=== PATIENT | female | born 1970 | race Caucasian/White ===

== ENCOUNTER 2017-01-31 15:26 | Observation (INO) | payer OTHER ==
[~2017-01-31] VITALS: Ht 152.4 cm; Wt 67.3 kg
[~2017-01-31 15:26] MED LIST: ADVAIR 250/501 DISK IH; ADVAIR 250/501 DISK PO; ADVIL,NUPRIN,M200 MG PO; ALPRAZOLAM1 MG PO; ARNUITY ELLIP100 MCG IH; ATORVASTATIN CA40 MG PO; AVENTYL,PAMELOR25 MG PO; BENZONATATE100 MG PO; BRINTELLIX5 MG PO; BUSPAR10 MG PO; BUSPAR5 MG PO; CARDIZEM CD,CA180 MG PO; CIPRO500 MG PO; CIPROFLOXACIN500 M1 PO; CLONIDINE HCL0.2 MG PO; CYMBALTA30 MG PO; CYMBALTA60 MG PO; DAILY VALUE1 EACH PO; DULOXETINE HCL20 MG PO; GABAPENTIN300 MG PO; HYDROCODON-ACE1 EAC7 PO; IMODIUM MS REL1 EACH PO; LEVOFLOXACIN750 MG PO; LOPERAMIDE2 M1 PO; MOTRIN IB200 MG PO; NEURONTIN300 MG PO; NICODERM CQ1 EAC1 TD; OMEPRAZOLE40 M1 PO; PREDNISONE20 MG PO; PRILOSEC; PRILOSEC20 MG PO; PRILOSEC40 MG PO; REGLAN5 MG PO; SEROQUEL100 MG PO; VALIUM2 MG PO; VENTOLIN HFA18 GM IH; XANAX1 MG PO; ZOFRAN8 MG PO; ZOLPIDEM TARTRAT5 MG PO
[2017-01-31 16:48] LABS: BASOPHIL COUNT 0.1 K/uL (0-0.1); EOSINOPHIL (%) 0.1 % (0-5); IMMATURE GRANULOCYTE (%) 0.4 % (0.0-0.7); IMMATURE GRANULOCYTE COUNT 0.1 K/uL; LYMPHOCYTE COUNT 1.4 K/uL (1.0-2.8); MCH 33.1 PG (29.0-34.0); MCHC 34.3 G/DL (30.0-36.0); MCV 96.6 FL (83-99); MEAN PLAT.VOLUME 10.7 uM^3 (9.5-12.4); MONOCYTE (%) 7.8 % (3-12); MONOCYTE COUNT 1.3 K/uL (0-0.8); NEUTROPHIL (%) 83.2 % (45-76); PLATELET COUNT 273 K/uL (156-360); RBC DIS.WIDTH-CV 13.2 % (11.8-14.6); RBC DIS.WIDTH-SD 46.4 % (39-53); RED BLOOD COUNT 5.07 M/uL (3.80-5.20); WHITE BLOOD COUNT 16.9 K/uL (4.1-10.2)
[2017-01-31 17:00] LABS: ADD MIUA? YES; BILIRUBIN NEGATIVE; BLOOD NEGATIVE; COLOR AMBER ((YELLOW)); GLUCOSE (STRIP) NEGATIVE; KETONES 20; LEUKOCYTES TRACE; NITRITE NEGATIVE; PROTEIN (STRIP) 100; SPECIFIC GRAVITY 1.024 (1.000-1.030); UROBILINOGEN 0.2 MG/DL (0.2-1.0)
[2017-01-31 17:06] LABS: CHLORIDE 107 mEq/L (99-109); POTASSIUM 4.7 mEq/L (3.7-5.4); SODIUM 144 mEq/L (136-147)
[2017-01-31 17:08] LABS: GLUCOSE 120 mg/dL (70-99)
[2017-01-31 17:09] LABS: TROP-I INTERPRETATION NEGATIVE; TROPONIN-I < 0.01 ng/mL (0.0-0.30)
[2017-01-31 17:10] LABS: ANION GAP 18 MEQ/L (2-14); TOTAL BILIRUBIN 0.8 mg/dL (0.0-1.0)
[2017-01-31 17:12] LABS: ALKALINE PHOSPHATASE 105 IU/L (3-129); GFR ESTIMATE (CALCULATED) > 59 mL/min/
[2017-01-31 17:13] LABS: UREA NITROGEN (BUN) 14 mg/dL (9-23)
[2017-01-31 17:16] LABS: LIPASE 66 U/L (1.0-51.0)
[2017-01-31 17:24] LABS: BACTERIA RARE /HPF; EPITHELIAL CELLS 1+ /HPF; MUCUS 2+ /LPF; RED BLOOD CELLS 0-5 /HPF (0-5); UCUL ADDED? NO
[2017-01-31] MEDS ORDERED: BUSPAR5 MG PO (19:46)
[2017-01-31 20:24] LABS: INFLUENZA A VIRAL ANTIGEN NEGATIVE; INFLUENZA B VIRAL ANTIGEN NEGATIVE
[2017-01-31 23:31] VITALS: BP 148/98
[2017-02-01 04:30] VITALS: BP 150/89
[2017-02-01 07:18] VITALS: BP 142/75
[2017-02-01 07:35] LABS: ANION GAP 11 MEQ/L (2-14); CHLORIDE 111 MEQ/L (99-109); GFR ESTIMATE (CALCULATED) > 59 mL/min/; GLUCOSE 100 mg/dL (70-99); SAMPLE HEMOLYSIS CHECK 0; SAMPLE ICTERIC CHECK 0; SAMPLE LIPEMIA CHECK 0; SODIUM 146 MEQ/L (136-147); UREA NITROGEN (BUN) 11 mg/dL (9-23)
[2017-02-01 07:36] LABS: POTASSIUM 3.2 MEQ/L (3.7-5.4)
[2017-02-01 07:54] LABS: HEMATOCRIT 37.8 % (36.0-46.0); MCH 32.9 PG (29.0-34.0); MCHC 33.3 G/DL (30.0-36.0); MCV 98.7 FL (83-99); RBC DIS.WIDTH-CV 13.4 % (11.8-14.6); RBC DIS.WIDTH-SD 48.4 % (39-53)
[2017-02-01 07:58] LABS: RED BLOOD COUNT 3.83 M/uL (3.80-5.20); WHITE BLOOD COUNT 6.5 K/uL (4.1-10.2)
[2017-02-01 08:03] LABS: MEAN PLAT.VOLUME 10.7 uM^3 (9.5-12.4); PLAT.SUFFICIENCY ADEQUATE; PLATELET COUNT 151 K/uL (156-360)
[2017-02-01 10:01] LABS: LIPASE 93 U/L (1.0-51.0)
[2017-02-01 12:53] VITALS: BP 136/101
== END 2017-02-01 15:19 | disposition home or self-care (01) ==
LOC: EME → EDBD 15:26 → EDOF 22:26 → 5WEST 22:26 → EDOF 22:26 → 5WEST 23:10
PROVIDERS: Emergency Medicine; Family Medicine
DX: R11.2 Nausea with vomiting, unspecified (principal); R51 Headache; E86.0 Dehydration; E87.6 Hypokalemia; D72.829 Elevated white blood cell count, unspecified; I16.0 Hypertensive urgency; I10 Essential (primary) hypertension; R00.0 Tachycardia, unspecified; F41.9 Anxiety disorder, unspecified; K21.9 Gastro-esophageal reflux disease without esophagitis; Z87.11 Personal history of peptic ulcer disease; J44.9 Chronic obstructive pulmonary disease, unspecified; F32.9 Major depressive disorder, single episode, unspecified; F17.200 Nicotine dependence, unspecified, uncomplicated
CPT/HCPCS: 70450; 71010; 74176; 80048; 80053; 81003; 83605; 83690; 84484; 85025; 85027; 86850; 86900; 86901; 87040; 87502; 93005; 99202; 99281; 99285; C9113; G0378; J0360; J0780; J2060; J2270; J2405; J3010; J3360; J7030; Q0169

== ENCOUNTER 2017-04-21 09:17 | Inpatient (IN) | payer OTHER ==
[~2017-04-21] VITALS: Ht 152.4 cm; Wt 66.8 kg
[2017-04-21 10:20] LABS: EOSINOPHIL (%) 0.7 % (0-5); EOSINOPHIL COUNT 0.1 K/uL (0-0.3); HEMATOCRIT 42.7 % (36.0-46.0); IMMATURE GRANULOCYTE (%) 0.7 % (0.0-0.7); IMMATURE GRANULOCYTE COUNT 0.1 K/uL; INSTRUMENT ABS NEUTROPHIL CT 12.4 K/uL; LYMPHOCYTE COUNT 0.9 K/uL (1.0-2.8); MCH 33.2 PG (29.0-34.0); MCHC 33.7 G/DL (30.0-36.0); MCV 98.4 FL (83-99); MEAN PLAT.VOLUME 11.7 uM^3 (9.5-12.4); MONOCYTE (%) 3.8 % (3-12); MONOCYTE COUNT 0.5 K/uL (0-0.8); NEUTROPHIL (%) 88.4 % (45-76); NEUTROPHIL COUNT 12.4 K/uL (1.8-6.4); PLATELET COUNT 196 K/uL (156-360); RBC DIS.WIDTH-CV 12.3 % (11.8-14.6); RBC DIS.WIDTH-SD 45.2 % (39-53); RED BLOOD COUNT 4.34 M/uL (3.80-5.20); WHITE BLOOD COUNT 14.1 K/uL (4.1-10.2)
[2017-04-21 10:28] LABS: ADD MIUA? YES; BILIRUBIN SMALL; BLOOD NEGATIVE; COLOR AMBER ((YELLOW)); GLUCOSE (STRIP) NEGATIVE; KETONES NEGATIVE; LEUKOCYTES SMALL; NITRITE NEGATIVE; PROTEIN (STRIP) 100; SPECIFIC GRAVITY 1.025 (1.000-1.030)
[2017-04-21 10:36] LABS: CHLORIDE 100 mEq/L (99-109); POTASSIUM 2.8 mEq/L (3.7-5.4); SODIUM 136 mEq/L (136-147)
[2017-04-21 10:38] LABS: GLUCOSE 133 mg/dL (70-99)
[2017-04-21 10:38] LABS: AMPHETAMINE NEGATIVE (500 ng/mL); BARBITURATES NEGATIVE (200 ng/mL); BENZODIAZEPINES PRESUMPTIVE POSITIVE (150 ng/mL); COCAINE PRESUMPTIVE POSITIVE (150 ng/mL); INTERNAL CONTROLS VALID? YES; METHADONE NEGATIVE (200 ng/mL); METHAMPHETAMINE NEGATIVE (500 ng/mL); OPIATES (MORPHINE) NEGATIVE (100 ng/mL); OXYCODONE PRESUMPTIVE POSITIVE (100 ng/mL); PHENCYCLIDINE NEGATIVE (25 ng/mL); PROPOXYPHENE NEGATIVE (300 ng/mL); THC CANNABINOIDS PRESUMPTIVE POSITIVE (50 ng/mL); TRICYCLIC ANTIDEPRESSANTS PRESUMPTIVE POSITIVE (300 ng/mL)
[2017-04-21 10:39] LABS: ADD MEDTOX COMMENT Y
[2017-04-21 10:39] LABS: ANION GAP 13 MEQ/L (2-14)
[2017-04-21 10:40] LABS: TOTAL BILIRUBIN 1.2 mg/dL (0.0-1.0)
[2017-04-21 10:41] LABS: ALKALINE PHOSPHATASE 95 IU/L (3-129)
[2017-04-21 10:42] LABS: GFR ESTIMATE (CALCULATED) > 59 mL/min/
[2017-04-21 10:43] LABS: UREA NITROGEN (BUN) 10 mg/dL (9-23)
[2017-04-21 10:51] LABS: QUANTITATIVE HCG < 4.0 MIU/ML
[2017-04-21 10:52] LABS: BACTERIA 2+ /HPF; EPITHELIAL CELLS 2+ /HPF; MUCUS 3+ /LPF; RED BLOOD CELLS NONE SEEN /HPF (0-5); UCUL ADDED? YES
[2017-04-21 11:12] LABS: BENZODIAZEPINES, URINE SCREEN POSITIVE (200 ng/mL)
[2017-04-21] MEDS ORDERED: CYMBALTA30 MG PO (11:15)
[2017-04-21] MEDS ORDERED: GABAPENTIN300 MG PO (11:16)
[2017-04-21 14:45] LABS: TROP-I INTERPRETATION NEGATIVE; TROPONIN-I < 0.01 ng/mL (0.0-0.30)
[2017-04-21 15:38] VITALS: BP 111/79
[2017-04-21 16:28] LABS: C DIFF TOXIN NEGATIVE (NEGATIVE); PROBE CHECK PASS; SPECIMEN PROCESSING CONTROL PASS
[2017-04-21 19:29] VITALS: BP 106/67
[2017-04-21 20:00] LABS: TROP-I INTERPRETATION NEGATIVE; TROPONIN-I < 0.01 ng/mL (0.0-0.30)
[2017-04-21 23:35] VITALS: BP 97/56
[2017-04-22 01:52] LABS: TROP-I INTERPRETATION NEGATIVE; TROPONIN-I < 0.01 ng/mL (0.0-0.30)
[2017-04-22 03:36] VITALS: BP 117/79
[2017-04-22 06:19] LABS: HEMATOCRIT 40.7 % (36.0-46.0); MCH 33.7 PG (29.0-34.0); MCHC 32.4 G/DL (30.0-36.0); MEAN PLAT.VOLUME 11.9 uM^3 (9.5-12.4); PLATELET COUNT 190 K/uL (156-360); RBC DIS.WIDTH-CV 12.6 % (11.8-14.6); RBC DIS.WIDTH-SD 48.2 % (39-53); RED BLOOD COUNT 3.92 M/uL (3.80-5.20); WHITE BLOOD COUNT 7.7 K/uL (4.1-10.2)
[2017-04-22 06:23] LABS: MCV 103.8 FL (83-99)
[2017-04-22 06:42] LABS: ANION GAP 10 MEQ/L (2-14); CHLORIDE 109 MEQ/L (99-109); GFR ESTIMATE (CALCULATED) > 59 mL/min/; GLUCOSE 192 mg/dL (70-99); POTASSIUM 4.7 MEQ/L (3.7-5.4); SAMPLE HEMOLYSIS CHECK 0; SAMPLE ICTERIC CHECK 0; SAMPLE LIPEMIA CHECK 0; SODIUM 141 MEQ/L (136-147); UREA NITROGEN (BUN) 6 mg/dL (9-23)
[2017-04-22 07:47] VITALS: BP 100/68
[2017-04-22 15:05] VITALS: BP 153/81
[2017-04-22 19:58] VITALS: BP 150/85
[2017-04-22 23:47] VITALS: BP 121/79
[2017-04-23 03:43] VITALS: BP 126/82
[2017-04-23 08:35] VITALS: BP 131/79
[2017-04-23 11:42] LABS: INTERNAL CONTROL VALID? YES
[2017-04-23 11:43] LABS: INTERNAL CONTROL VALID? YES
[2017-04-23 12:47] VITALS: BP 144/65
[2017-04-23 15:52] VITALS: BP 162/93
[2017-04-23 20:00] VITALS: BP 160/90
[2017-04-24] VITALS (8 sets, daily range): BP systolic 135–194; BP diastolic 72–97
[2017-04-24 09:31] LABS: HEMATOCRIT 37.7 % (36.0-46.0); MCH 33.3 PG (29.0-34.0); MCHC 32.6 G/DL (30.0-36.0); MCV 102.2 FL (83-99); MEAN PLAT.VOLUME 11.4 uM^3 (9.5-12.4); PLATELET COUNT 226 K/uL (156-360); RBC DIS.WIDTH-CV 12.4 % (11.8-14.6); RBC DIS.WIDTH-SD 46.5 % (39-53); RED BLOOD COUNT 3.69 M/uL (3.80-5.20); WHITE BLOOD COUNT 7.1 K/uL (4.1-10.2)
[2017-04-24 09:53] LABS: ANION GAP 9 MEQ/L (2-14); CHLORIDE 107 MEQ/L (99-109); GFR ESTIMATE (CALCULATED) > 59 mL/min/; POTASSIUM 3.8 MEQ/L (3.7-5.4); SAMPLE HEMOLYSIS CHECK 0; SAMPLE ICTERIC CHECK 0; SAMPLE LIPEMIA CHECK 0; SODIUM 143 MEQ/L (136-147); UREA NITROGEN (BUN) 7 mg/dL (9-23)
[2017-04-24 09:54] LABS: GLUCOSE 114 mg/dL (70-99)
[2017-04-25 03:43] VITALS: BP 141/78
[2017-04-25 08:42] VITALS: BP 147/90
[2017-04-25] MEDS ORDERED: SPIRIVA RESPIMAT4 GM IH (09:38)
[2017-04-25] MEDS ORDERED: NICOTINE PATCH1 EAC2 TD (09:38)
[2017-04-25] MEDS ORDERED: ADVAIR HFA120 INHAL1 IH (09:38)
[2017-04-25] MEDS ORDERED: CEFTIN500 MG PO (09:39)
[2017-04-25] MEDS ORDERED: PREDNISONE10 MG PO (09:40)
== END 2017-04-25 11:22 | disposition home or self-care (01) | DRG 190 ==
LOC: EME 09:17 → EDOF 13:30 → 5SOUTH 13:30
PROVIDERS: Emergency Medicine; Internal Medicine; Internal Medicine Pulmonary Disease; Nurse Practitioner Adult Health
DX: J44.0 Chronic obstructive pulmonary disease with (acute) lower respiratory infection (principal); J12.9 Viral pneumonia, unspecified; J44.1 Chronic obstructive pulmonary disease with (acute) exacerbation; R09.02 Hypoxemia; I10 Essential (primary) hypertension; D86.9 Sarcoidosis, unspecified; T38.0X5A Adverse effect of glucocorticoids and synthetic analogues, initial encounter; F41.9 Anxiety disorder, unspecified; K21.9 Gastro-esophageal reflux disease without esophagitis; F12.10 Cannabis abuse, uncomplicated; F14.10 Cocaine abuse, uncomplicated; F17.210 Nicotine dependence, cigarettes, uncomplicated; F32.9 Major depressive disorder, single episode, unspecified; E87.6 Hypokalemia; G43.909 Migraine, unspecified, not intractable, without status migrainosus; E78.5 Hyperlipidemia, unspecified; Z87.01 Personal history of pneumonia (recurrent); Z87.11 Personal history of peptic ulcer disease; Z90.710 Acquired absence of both cervix and uterus; Z82.3 Family history of stroke; Z82.49 Family history of ischemic heart disease and other diseases of the circulatory system
CPT/HCPCS: 71020; 71275; 80048; 80053; 81003; 83605; 83880; 84484; 84702; 84999; 85025; 85027; 87040; 87070; 87077; 87086; 87205; 87449; 87493; 87506; 93005; 94640; 94640 76; 94760; 94799; 99202; 99281; 99285; J0360; J0456; J0696; J0780; J1200; J2405; J2920; J2930; J3010; J3480; J7030; J7050; J7120

== ENCOUNTER 2017-07-14 15:27 | Emergency (ER) | payer OTHER ==
[~2017-07-14] VITALS: Ht 154.9 cm; Wt 69.2 kg
[~2017-07-14 15:27] MED LIST changes: +ADVAIR HFA120 INHAL1 IH; +CEFTIN500 MG PO; +NICOTINE PATCH1 EAC2 TD; +PREDNISONE10 MG PO; +SPIRIVA RESPIMAT4 GM IH
[2017-07-14 18:37] LABS: MCH 34.1 PG (29.0-34.0); MCHC 33.8 G/DL (30.0-36.0); MCV 100.7 FL (83-99); MEAN PLAT.VOLUME 11.3 uM^3 (9.5-12.4); PLATELET COUNT 200 K/uL (156-360); RBC DIS.WIDTH-CV 13.4 % (11.8-14.6); RBC DIS.WIDTH-SD 49.5 % (39-53); RED BLOOD COUNT 4.17 M/uL (3.80-5.20); WHITE BLOOD COUNT 13.8 K/uL (4.1-10.2)
[2017-07-14 18:40] LABS: INFLUENZA A VIRAL ANTIGEN NEGATIVE; INFLUENZA B VIRAL ANTIGEN NEGATIVE
[2017-07-14 18:56] LABS: TROP-I INTERPRETATION NEGATIVE; TROPONIN-I < 0.01 ng/mL (0.0-0.30)
[2017-07-14 19:04] LABS: CHLORIDE 103 mEq/L (99-109); POTASSIUM 3.1 mEq/L (3.7-5.4); SODIUM 141 mEq/L (136-147)
[2017-07-14 19:06] LABS: GLUCOSE 121 mg/dL (70-99)
[2017-07-14 19:08] LABS: ANION GAP 16 MEQ/L (2-14)
[2017-07-14 19:10] LABS: ALKALINE PHOSPHATASE 98 IU/L (3-129); GFR ESTIMATE (CALCULATED) > 59 mL/min/
[2017-07-14 19:11] LABS: UREA NITROGEN (BUN) 8 mg/dL (9-23)
[2017-07-14 19:12] LABS: DIRECT BILIRUBIN 0.4 mg/dL (0.0-0.3)
[2017-07-14 19:19] LABS: QUANTITATIVE HCG < 4.0 MIU/ML
[2017-07-14 20:11] LABS: ADD MIUA? YES; BILIRUBIN NEGATIVE; BLOOD NEGATIVE; COLOR AMBER ((YELLOW)); GLUCOSE (STRIP) NEGATIVE; KETONES 20; LEUKOCYTES LARGE; NITRITE POSITIVE; PROTEIN (STRIP) 30; UROBILINOGEN 0.2 MG/DL (0.2-1.0)
[2017-07-14 20:29] LABS: BACTERIA 3+ /HPF; CASTS NONE SEEN /LPF; CRYSTALS NONE SEEN; EPITHELIAL CELLS 2+ /HPF; MUCUS 1+ /LPF; RED BLOOD CELLS RARE /HPF (0-5); UCUL ADDED? YES; WHITE BLOOD CELLS TNTC /HPF (0-5)
[2017-07-14] MEDS ORDERED: ZOFRAN ODT4 MG PO (20:52)
[2017-07-14] MEDS ORDERED: BACTRIM,SEPT1 TABLET PO (21:02)
[2017-07-14 22:03] VITALS: BP 120/89
== END 2017-07-14 22:04 | disposition home or self-care (01) ==
LOC: EME 15:27
PROVIDERS: Physician Assistant Medical
DX: N12 Tubulo-interstitial nephritis, not specified as acute or chronic (principal); I10 Essential (primary) hypertension; J44.9 Chronic obstructive pulmonary disease, unspecified; K21.9 Gastro-esophageal reflux disease without esophagitis; F17.200 Nicotine dependence, unspecified, uncomplicated; Z88.6 Allergy status to analgesic agent
CPT/HCPCS: 71020; 80048; 80076; 81003; 84484; 84702; 85027; 87077; 87086; 87186; 87502; 93005; 99281; 99284; J1885; J2405; J7030